=== PATIENT | female | born 1935 | race Caucasian/White ===

== ENCOUNTER 2023-12-30 11:55 | Emergency (ER) | payer OTHER, SELFPAY ==
[2023-12-30 12:07] VITALS: PULSE 103; BMI 19.3
--- NOTE | 2023-12-30 12:08 | XR_ITS ---
Examination: CT cervical spine without contrast 2-D sagittal reconstructions 2-D coronal reconstructions 3-D reconstructions. Exam date and time:December 30, 2023 1309 hrs. Indications: Ground-level fall today with injury to the neck, neck pain post injury CTDI:vol (mGy) 7.4 DLP: (mGycm) 154 Technique: Multiple 2 mm axial sections of the cervical spine have been obtained. The coronal and sagittal reconstructions have been obtained. 3-D reconstructions have been obtained. Low dose protocols were performed. One or more of the following dose reduction techniques were used; automated exposure control, adjustment of the mA and/or KV according to patient size, use of iterative reconstruction technique. Findings: Axial sections demonstrate intact base of the skull. C1 exhibit satisfactory relationship to the odontoid. No acute cervical vertebral body fracture seen. Alignment posterior spinous processes satisfactory. Impression: No acute cervical fracture.
--- NOTE | 2023-12-30 12:08 | XR_ITS ---
Examination: CT brain head without contrast. 2-D sagittal coronal reconstructions Date and time of exam:December 30, 2023 1309 hrs. Indications: Ground-level fall today with injury to the head, head injury, head pain CTDI: vol (mGy):48.8 DLP: (mGycm):1032 Technique: Multiple CT axial sections of the brain have been obtained, 5 mm slice thickness. Contrast has not been administered. 2-D sagittal, coronal reconstructions have been obtained Low dose protocols were performed. One or more of the following dose reduction techniques were used; automated exposure control, adjustment of the mA and/or KV according to patient size, use of iterative reconstruction technique. Findings: No significant ventricular enlargement. 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 No mass effect or midline shift Basal cisterns are not remarkable. Fourth ventricle is midline. Cranial vault intact. Impression: Negative for acute hemorrhage, mass effect or midline shift
--- NOTE | 2023-12-30 12:08 | XR_ITS ---
Examination: Shoulder,right, 3 views Technique: Shoulder AP internal rotation, AP external rotation, Y view shoulder, 3 views Exam date and time :December 30, 2023 1218 hrs. Indications: Injury to the shoulder today, shoulder pain. Findings: Prominent osteopenia No acute shoulder fracture or dislocation Moderate osteoarthritis glenohumeral joint Impression: No acute shoulder fracture
--- NOTE | 2023-12-30 12:08 | XR_ITS ---
Examination: Right elbow 3 views Technique: Elbow AP, oblique, lateral 3 views Exam date and time: December 30, 2023 1218 hrs. Indications: Injury to the elbow today, elbow pain. Findings: Prominent osteopenia No acute fracture No dislocation Impression: No acute fracture.
--- NOTE | 2023-12-30 12:08 | XR_ITS ---
Examination: Humerus 2 views right Technique: Humerus, AP lateral 2 views Date and time of exam: December 30 2023 1218 hrs. Findings: Injury to the arm today with arm pain Findings: No shoulder dislocation or fracture Shaft humerus intact Impression: No acute fracture
[2023-12-30 12:13] VITALS: BP 159/80; PULSE 71; RESP 16; TEMP 36.9; O2SAT 95
--- NOTE | 2023-12-30 12:16 | PD.EDFALL ---
ED Fall Injury RME/HPI General Chief Complaint: Fall Stated Complaint: FALL ON PORCH WITH LOC, RIGHT ARM PAIN Time Seen by Provider: 12/30/23 12:04 Arrival date/time: 12/30/23 11:55 Limitations: no limitations RME / HPI RME / HPI Narrative: DR. LAZO MAIN ED EVALUATION: 88 year old female presents to the Emergency Department [facility] with complaint of a ground level fall backwards injuring the back of her head and her right shoulder outside while on the porch. Patient does not recall the events around the fall. She was told that she was out for a couple of seconds , she does not recall. No other injuries or symptoms reported at this time. PMHx: Hyperlipidemia, hypertension, hypothyroidism, type 2 diabetes. Social Hx: No tobacco, alcohol, or substance use. Related Data Home Medications ?Medication ?Instructions ?Recorded ?Confirmed aspirin 81 mg tablet,delayed 81 mg PO QDAY 03/06/19 02/02/21 release (Aspir-) carvedilol 25 mg tablet 25 mg PO BID 03/06/19 02/02/21 digoxin 125 mcg (0.125 mg) tablet 125 mcg PO QDAY 03/06/19 02/02/21 glipizide 10 mg tablet 10 mg PO BID 03/06/19 02/02/21 hydrochlorothiazide 25 mg tablet 25 mg PO QDAY 03/06/19 02/02/21 levothyroxine 112 mcg tablet 112 mcg PO QDAY 03/06/19 02/02/21 metformin 1,000 mg tablet 1,000 mg PO BID 03/06/19 02/02/21 atorvastatin 10 mg tablet 10 mg PO HS 02/02/21 02/02/21 lisinopril 20 mg tablet 20 mg PO QDAY 02/02/21 02/02/21 sitagliptin phosphate 100 mg 100 mg PO QDAY 02/02/21 02/02/21 tablet (Januvia) Allergies Allergy/AdvReac Type Severity Reaction Status Date / Time Penicillins Allergy Mild Hives Verified 12/30/23 12:07 shellfish derived Allergy Verified 12/30/23 12:07 shrimp Allergy Swelling Verified 12/30/23 12:07 of Lip/Tongue/Throat Review of Systems Review of Systems Systems Reviewed: All systems reviewed, normal except as documented Narrative Review of Systems: GEN: No fever, no chills, no weight loss EYES: No discharge, no visual changes, no pain HEENT: No ear pain, no congestion, no sore throat PULM: No shortness of breath, no cough, no congestion CV: No chest pain, no dyspnea on exertion, no palpitations GI: No nausea, no vomiting, no diarrhea, no pain, no constipation : No frequency, no urgency and no dysuria MUSC/SKEL: + right shoulder pain (secondary to fall see HPI), no back pain SKIN: No rash PSYCH: No hallucinations, no depression HEME/LYMPH: No easy bleeding or bruising tendencies NEURO: No weakness, + back of head/ headache (secondary to fall see HPI), + LOC (see HPI) Past Medical History Past Medical History NEUROLOGIC: Positive Neurological Disorders, Ladd's Palsy and Head Trauma CARDIAC: Positive Cardiac Disorders and Hypertension RESPIRATORY: Positive Sleep Apnea GASTROINTESTINAL: Positive Hemorrhoids GENITOURINARY: Positive Genitourinary Disorders and Kidney Stones REPRODUCTIVE: Positive Breast Cancer and Previous Pregnancies MUSCULOSKELETAL: Positive Musculoskeletal Disorders, Arthritis and Poliovirus ENT: Positive Cataracts and Head Trauma ENDOCRINE: Positive Endocrine Disorders, Diabetes Mellitus Type 2 and Hypothyroidism OTHER HISTORY: Positive Shingles, Blood Transfusions, Anesthesia Reactions, Radiation Therapy, Chicken Pox, Measles, Mumps, Cancer and Breast Cancer Family History FAMILY HISTORY: Positive Family Psychiatric Problems, Family Respiratory Disorders, Family Cardiac Disorders, Family Gastrointestinal Problems, Family Cancer and Family Surgery; Negative Family Anesthesia Reaction Surgical History SURGICAL: Positive Cardiac Surgery, Pacemaker, Angiogram, Mastectomy, Lumpectomy and Hysterectomy Social History SMOKING STATUS: Never smoker SUBSTANCE USE: does not use ALCOHOL: Never ED Exam General Limitations: Present no limitations General appearance: Present alert and in no apparent distress Head Head exam: Present atraumatic Eye Eye exam: Present normal appearance, PERRL and EOMI ENT ENT exam: Present normal exam, normal oropharynx and mucous membranes moist Neck Neck exam: Present normal inspection, full ROM and trachea midline Chest Chest inspection: Present normal inspection and symmetric chest wall rise Respiratory Respiratory exam: Present normal lung sounds bilaterally Cardiovascular Cardiovascular exam: Present regular rate, normal rhythm and normal heart sounds Abdominal Exam Abdominal exam: Present soft and normal bowel sounds Extremities Exam Extremities exam: Present normal inspection and full ROM Expanded Upper Extremity Exam Shoulder exam: Present tenderness (Tenderness to palpation throughout her right shoulder and limited range of motion due to pain.) and other (Small 3 cm contusion without laceration, bruising without deformity over her right shoulder.) Elbow exam: Present other (8 cm skin tear over her lateral right elbow without deformity or ecchymosis of the elbow joint.) Back Exam Back exam: Present normal inspection and full ROM Neurological Exam Neurological exam: Present alert, oriented X3 and CN II-XII intact Psychiatric Psychiatric exam: Present normal affect and normal mood Skin Skin exam: Present warm, dry and normal color Course Quality Measures none Orders Category Date Time Status CT cervical spine wo con Stat Exams 12/30/23 12:[address] head/brain wo con Stat Exams 12/30/23 12:08 Completed XR elbow comp RT min 3V Stat Exams 12/30/23 12:08 Completed XR humerus RT min 2V Stat Exams 12/30/23 12:08 Completed XR shoulder RT min 2V Stat Exams 12/30/23 12:08 Completed Acetaminophen Tab [Tylenol Tab] Med 12/30/23 12:08 Discontinued 650 mg PO X1 ONE Tet,Diphth,Pertuss(Acell)-Tdap [Boostrix Vacc] Med 12/30/23 12:08 Discontinued 0.5 ml IMI .ONCE ONE Vital Signs Vital signs: Vital Signs Temperature 98.5 F 12/30/23 12:13 Pulse Rate 71 12/30/23 12:13 Respiratory Rate 16 12/30/23 12:13 Blood Pressure 159/80 H 12/30/23 12:13 Pulse Oximetry (%) 95 12/30/23 12:13 Oxygen Delivery Method Room Air 12/30/23 12:13 Fall MDM Narrative MDM Narrative:: I, Ila Morin am scribing for and in the presence of Dr. Lazo. Patient data External records reviewed:: [facility] previous records (Reviewed last ED visit dated 09/03/23, discharged with the following: Leg edema, right.) and EMS form Clinical information provided by:: patient and EMS Social determinants that could affect healthcare access:: none Patient has the following chronic illnesses:: Hyperlipidemia, hypertension, hypothyroidism, type 2 diabetes. How is presenting disease/condition affected by chronic disease/condition?: uneffected by Evaluation data The following diagnostics were reviewed and interpreted by me:: radiology exam(s) Lab and/or radiology exams considered but not ordered:: none Interpretation Summary: Procedure(s): XR shoulder RT min 2V Accession Number(s): [id number] cc: Tarun Lazo MD; Richard Biswas MD; Jocelyne Lubin MD~ Examination: Shoulder,right, 3 views Technique: Shoulder AP internal rotation, AP external rotation, Y view shoulder, 3 views Exam date and time :December 30, 2023 1218 hrs. Indications: Injury to the shoulder today, shoulder pain. Findings: Prominent osteopenia No acute shoulder fracture or dislocation Moderate osteoarthritis glenohumeral joint Impression: No acute shoulder fracture Dictated By: Richard Biswas MD Procedure(s): XR humerus RT min 2V Accession Number(s): [id number] cc: Tarun Lazo MD; Richard Biswas MD; Jocelyne Lubin MD~ Examination: Humerus 2 views right Technique: Humerus, AP lateral 2 views Date and time of exam: December 30 2023 1218 hrs. Findings: Injury to the arm today with arm pain Findings: No shoulder dislocation or fracture Shaft humerus intact Impression: No acute fracture Dictated By: Richard Biswas MD Procedure(s): CT head/brain wo con Accession Number(s): [id number] cc: Tarun Lazo MD; Richard Biswas MD; Jocelyne Lubin MD~ Examination: CT brain head without contrast. 2-D sagittal coronal reconstructions Date and time of exam:December 30, 2023 1309 hrs. Indications: Ground-level fall today with injury to the head, head injury, head pain CTDI: vol (mGy):48.8 DLP: (mGycm):1032 Technique: Multiple CT axial sections of the brain have been obtained, 5 mm slice thickness. Contrast has not been administered. 2-D sagittal, coronal reconstructions have been obtained Low dose protocols were performed. One or more of the following dose reduction techniques were used; automated exposure control, adjustment of the mA and/or KV according to patient size, use of iterative reconstruction technique. Findings: No significant ventricular enlargement. 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 No mass effect or midline shift Basal cisterns are not remarkable. Fourth ventricle is midline. Cranial vault intact. Impression: Negative for acute hemorrhage, mass effect or midline shift Dictated By: Richard Biswas MD Procedure(s): XR elbow comp RT min 3V Accession Number(s): [id number] cc: Tarun Lazo MD; Richard Biswas MD; Jocelyne Lubin MD~ Examination: Right elbow 3 views Technique: Elbow AP, oblique, lateral 3 views Exam date and time: December 30, 2023 1218 hrs. Indications: Injury to the elbow today, elbow pain. Findings: Prominent osteopenia No acute fracture No dislocation Impression: No acute fracture. Dictated By: Richard Biswas MD Procedure(s): CT cervical spine wo con Accession Number(s): [id number] cc: Tarun Lazo MD; Richard Biswas MD; Jocelyne Lubin MD~ Examination: CT cervical spine without contrast 2-D sagittal reconstructions 2-D coronal reconstructions 3-D reconstructions. Exam date and time:December 30, 2023 1309 hrs. Indications: Ground-level fall today with injury to the neck, neck pain post injury CTDI:vol (mGy) 7.4 DLP: (mGycm) 154 Technique: Multiple 2 mm axial sections of the cervical spine have been obtained. The coronal and sagittal reconstructions have been obtained. 3-D reconstructions have been obtained. Low dose protocols were performed. One or more of the following dose reduction techniques were used; automated exposure control, adjustment of the mA and/or KV according to patient size, use of iterative reconstruction technique. Findings: Axial sections demonstrate intact base of the skull. C1 exhibit satisfactory relationship to the odontoid. No acute cervical vertebral body fracture seen. Alignment posterior spinous processes satisfactory. Impression: No acute cervical fracture. Dictated By: Richard Biswas MD Medications / Prescriptions Medications or Prescriptions considered but not ordered:: none Medication administrations:: Medication Administration History Discontinued Medications Acetaminophen (Acetaminophen 325 Mg Tablet) 650 mg PO X1 ONE Stop: 12/30/23 12:09 Last Admin: 12/30/23 14:21 Dose: 650 mg Documented By: RD Diphtheria/Tetanus/Acell Pertussis (Diphth,Pertuss(Acell),Tet Vac 0.5 Ml Vial) 0.5 ml IMi .ONCE ONE Stop: 12/30/23 12:09 Last Admin: 12/30/23 14:23 Dose: 0.5 ml Documented By: JOSEPH see above Consultations Consultation(s) initiated? (list below): No Diagnosis Fall Differential Diagnosis: dislocation of shoulder region, concussion with loss of consciousness and other (elbow dislocation, elbow fracture, shoulder dislocation, shoulder fracture) Most likely diagnosis given after review of the tests above:: shoulder contusion, inclosed hip injury, skin tear Admission Indicated Admission indicated?: not indicated Admission Request Was there a request for admission?: No Disposition Plan Disposition Plan: Discharge Discharge Attestation Discharge Attestation: The patient and all family members were given an opportunity to ask questions and understood the discharge instructions. Discharge instructions specifically effects, indications for sooner follow up or return to the emergency department, and the expected course of current diagnosis. Patient condition: Stable Discharge Plan Plan Patient Disposition: HOME (Self Care) Patient condition on transfer: Stable Prescriptions/Referrals Prescriptions/Med Rec: No Action carvedilol 25 mg Tablet 25 mg PO BID glipizide 10 mg Tablet 10 mg PO BID aspirin [Aspir-81] 81 mg Tablet,Delayed Release (Dr/Ec) 81 mg PO QDAY metformin 1,000 mg Tablet 1,000 mg PO BID Patient Comments: PT TAKES 1/2 TABLET FOUR TIMES A DAY hydrochlorothiazide 25 mg Tablet 25 mg PO QDAY digoxin 125 mcg (0.125 mg) Tablet 125 mcg PO QDAY levothyroxine 112 mcg Tablet 112 mcg PO QDAY lisinopril 20 mg tablet 20 mg PO QDAY Januvia 100 mg tablet 100 mg PO QDAY atorvastatin 10 mg Tablet 10 mg PO HS Referrals: Jocelyne Puckett MD [Primary Care Provider] - In 1 week Problem List Clinical Impression: Skin tear, Contusion of right shoulder, Closed head injury Patient/Caregiver Discharge Instructions Education Materials: ED Contusion, Upper Extremity, ED Head Injury (Adult), ED Skin Avulsion Additional Instructions: Follow-up your primary doctor in 2-3 days for recheck. You can return to the emergency department sooner if symptoms worsen or for any issues. Print Language: Vincentian Stand Alone Forms: Tiffany Award Info., Patient Portal Info Letter
--- NOTE | 2023-12-30 12:53 | PC.NURSE ---
BIBA FROM HOME FOR FALL ON PORCH WITH LOC with RIGHT ARM SHOULDER PAIN, RIGHT ELBOW SKIN TEAR AND HEADACHE. DENIES TAKING BLOOD THINNERS OTHER THAN 81MG ASPIRIN. HX HTN, PACEMAKER AND DIABETES. PATIENT IS ALERT AND ANSWERS ALL QUESTIONS APPROPRIATELY.
[2023-12-30] MEDS: ACETAMINOPHEN 325 MG TABLET 650 MG PO (14:21)
[2023-12-30] MEDS: DIPHTH,PERTUSS(ACELL),TET VAC 0.5 ML VIAL IMi (14:23)
[2023-12-30 14:52] VITALS: BP 179/93; PULSE 60; RESP 18; TEMP 36.9; O2SAT 96
== END 2023-12-30 15:32 | disposition home or self-care (01) ==
PROVIDERS: Emergency Provider Emergency Medicine; PCP Family Medicine
DX: S40.011A Contusion of right shoulder, initial encounter (principal); S09.90XA Unspecified injury of head, initial encounter; S51.011A Laceration without foreign body of right elbow, initial encounter; S19.9XXA Unspecified injury of neck, initial encounter; W18.30XA Fall on same level, unspecified, initial encounter; Z23 Encounter for immunization
CPT/HCPCS: 70450; 72125; 73030; 73060; 73080; 90471; 90715; 99284; A9270

== ENCOUNTER → 2024-01-25 | Outpatient (CLI) | payer OTHER, SELFPAY ==
[2024-01-25 11:48] LABS: Glucose Estimated Average 186 mg/dL (80-131); Hemoglobin A1C 8.1 % Hgb (4.8-6.0)
[2024-01-25 11:57] LABS: Anion Gap 5 (7-16); BUN/Creatinine Ratio 23 Ratio (12-20); Blood Urea Nitrogen 27 mg/dL (9-23); Calcium 9.8 mg/dL (8.3-10.6); Carbon Dioxide 30.8 mMol/L (20.0-31.0); Chloride 102 mMol/L (98-107); Creatinine (Component) 1.2 mg/dL (0.6-1.3); Glucose 197 mg/dL (74-106); Osmolality,Calculated 285 (275-295); Potassium 4.8 mMol/L (3.4-5.1); Sodium 138 mMol/L (136-145); eGFR 44 See Note
== END | disposition home or self-care (01) ==
PROVIDERS: PCP Family Medicine; Referring Provider Family Medicine; Visit Provider Family Medicine
DX: E11.65 Type 2 diabetes mellitus with hyperglycemia (principal)
CPT/HCPCS: 36415; 80048; 83036

== ENCOUNTER → 2024-06-10 | Outpatient (CLI) | payer OTHER, SELFPAY ==
[2024-06-10 11:46] LABS: Cholesterol 195 mg/dL (132-200); Glucose Estimated Average 183 mg/dL (80-131); HDL Cholesterol 49 mg/dL (40-60); LDL Cholesterol,Calculated 116 mg/dL (0-130); Thyroid Stimulating Hormone 12.83 uIU/mL (0.55-4.78); Triglycerides 149 mg/dL (30-150)
[2024-06-10 12:23] LABS: Basophils # (Auto) 0.2 Thou/mm3 (0.0-0.2); Basophils % (Auto) 3 % (0-2.5); Eosinophils # (Auto) 1.3 Thou/mm3 (0.0-0.5); Eosinophils % (Auto) 16 % (0-10); Hematocrit 38.3 % (36.0-46.0); Hemoglobin 12.3 g/dL (12.0-16.0); Immature Granulocytes % (Auto) 0 % (0-0); Immature Granulocytes Auto 0.01 Thou/mm3 (0.00-0.00); Lymphocytes # (Auto) 2.2 Thou/mm3 (1.0-4.8); Lymphocytes % (Auto) 28 % (10-50); Mean Corpuscular HGB Conc 32.1 g/dl (31.0-37.0); Mean Corpuscular Hemoglobin 31.1 pg (25.0-35.0); Mean Corpuscular Volume 97 fL (80-100); Monocytes # (Auto) 0.5 Thou/mm3 (0.0-0.8); Monocytes % (Auto) 6 % (0-12); Neutrophils # (Auto) 3.8 Thou/mm3 (1.8-7.7); Neutrophils % (Auto) 48 % (37-80); Nucleated Red Blood Cell % 0 /100 WBC (0); Platelet Count 338 Thou/mm3 (140-440); RDW Standard Deviation 48.8 fL (36.4-46.3); Red Blood Count 3.95 Miln/mm3 (4.00-5.20); White Blood Count 7.9 Thou/mm3 (3.6-11.0)
[2024-06-10 12:23] LABS: Creatinine MALB Rnd Ur 57 mg/dL (30-125); Microalbumin Creat Ratio 423 mg/gCrea (<30); Microalbumin, Random Urine 241 mg/L (0-300)
== END | disposition home or self-care (01) ==
LOC: COPL 10:49
PROVIDERS: PCP Family Medicine; Referring Provider Family Medicine; Visit Provider Family Medicine
DX: E11.65 Type 2 diabetes mellitus with hyperglycemia (principal)
CPT/HCPCS: 36415; 80061; 82043; 82570; 83036; 84443; 85025

== ENCOUNTER → 2024-09-06 | Outpatient (CLI) | payer OTHER, SELFPAY ==
[2024-09-06 10:27] LABS: Anion Gap 9 (7-16); BUN/Creatinine Ratio 26 Ratio (12-20); Blood Urea Nitrogen 34 mg/dL (9-23); Calcium 9.0 mg/dL (8.3-10.6); Carbon Dioxide 24.7 mMol/L (20.0-31.0); Chloride 105 mMol/L (98-107); Creatinine (Component) 1.3 mg/dL (0.6-1.3); Free T4 (Free Thyroxine) 1.49 ng/dL (0.89-1.76); Glucose 194 mg/dL (74-106); Osmolality,Calculated 290 (275-295); Potassium 4.6 mMol/L (3.4-5.1); Sodium 139 mMol/L (136-145); Thyroid Stimulating Hormone 0.92 uIU/mL (0.55-4.78); eGFR 40 See Note
[2024-09-06 10:33] LABS: Glucose Estimated Average 177 mg/dL (80-131); Hemoglobin A1C 7.8 % Hgb (4.8-6.0)
== END | disposition home or self-care (01) ==
LOC: COPL 09:14
PROVIDERS: PCP Family Medicine; Referring Provider Family Medicine; Visit Provider Family Medicine
DX: E11.65 Type 2 diabetes mellitus with hyperglycemia (principal); E03.9 Hypothyroidism, unspecified
CPT/HCPCS: 36415; 80048; 83036; 84439; 84443

== ENCOUNTER 2024-09-19 05:06 | Emergency (ER) | payer OTHER, SELFPAY ==
[2024-09-19 05:07] VITALS: BP 181/102; PULSE 92; RESP 18; TEMP 37; O2SAT 98
[2024-09-19 05:19] VITALS: PULSE 70; RESP 18; O2SAT 98; BMI 18.3
[2024-09-19 05:27] VITALS: BP 178/73; PULSE 71; RESP 18; O2SAT 100
--- NOTE | 2024-09-19 06:08 | XR_ITS ---
Examination: Ribs, right, unilateral 3 views TECHNIQUE: AP RPO LPO right ribs 3 views Exam date and time: September 19, 2024 0713 hours INDICATIONS: Ground-level fall today with injury to the right chest, right rib pain Findings: No pneumothorax. Severe osteopenia. Old lower right rib fractures No pneumothorax. No acute rib fractures IMPRESSION: No pneumothorax. No acute rib fractures
--- NOTE | 2024-09-19 06:13 | EDNOTE_ITS ---
<Statement entered by Yareli Dickey MD - 09/19/24 15:00> I, Yareli Dickey MD, have reviewed the history, exam, and assessment of the patient. I have evaluated the patient independently and agree with the plan of care documented by [ ]. All diagnostic studies were reviewed and discussed. I confirm the diagnosis as documented by the Resident. I was present during the Medical Decision Making for this patient. The patient's plan of care was created between myself and the Resident and consistent with our discussion of the patient's case. ED General RME/HPI General Chief complaint: Fall Stated complaint: FALL Time Seen by Provider: 09/19/24 05:50 Arrival date/time: 09/19/24 05:06 RME / HPI RME / HPI narrative: 89-year-old female with past medical history of hypothyroidism, pacemaker, diabetes, and hypertension comes into the ER after ground-level fall. Patient stated that she was trying to go to the bathroom this morning and when she stood up from her bed her legs just gave out. She stated that she did not have any dizziness, palpitation, chest pain, shortness of breath, or any loss of consciousness at this time. She states that this has happened last year where s he had another fall where her legs just gave out. She does take aspirin and has been taking NSAIDs for her chronic hip pain. Patient did mention that she hit her right rib cage and was complaining also some right shoulder pain. Denies hitting her head. Denies having any abdominal pain, dysuria, changes in bowel movements, or any nausea or vomiting. Otherwise no other complaints at this time. Related Data Home Medications ?Medication ?Instructions ?Recorded ?Confirmed aspirin 81 mg tablet,delayed 81 mg PO QDAY 03/06/19 release (Aspir-) carvedilol 25 mg tablet 25 mg PO BID 03/06/19 digoxin 125 mcg (0.125 mg) tablet 125 mcg PO QDAY 02/1402/02/21 glipizide 10 mg tablet 10 mg PO BID 03/06/19 hydrochlorothiazide 25 mg tablet 25 mg PO QDAY 0 02/02/21 levothyroxine 112 mcg tablet 112 mcg PO QDAY 03/06/19 02/02/21 metformin 1,000 mg tablet 1,000 mg PO BID 03/06/19 atorvastatin 10 mg tablet 10 mg PO HS 02/02/21 1 lisinopril 20 mg tablet 20 mg PO QDAY 02/02/2102/02 sitagliptin phosphate 100 mg 100 mg PO QDAY 02/02/21 1 04/05/20 tablet (Januvia) Allergies Allergy/AdvReac Type Severity Reaction Status Date / Time Penicillins Allergy Mild Hives Verified 09/19/24 05:19 shellfish derived Allergy Verified 09/19/24 05:19 shrimp Allergy Swelling Verified 09/19/24 05:19 of Lip/Tongue/Throat Review of Systems Review of Systems Systems Reviewed: All systems reviewed, normal except as documented Past Medical History Past Medical History NEUROLOGIC: Positive Neurological Disorders, Ladd's Palsy and Head Trauma CARDIAC: Positive Cardiac Disorders and Hypertension RESPIRATORY: Positive Sleep Apnea GASTROINTESTINAL: Positive Hemorrhoids GENITOURINARY: Positive Genitourinary Disorders and Kidney Stones REPRODUCTIVE: Positive Breast Cancer and Previous Pregnancies MUSCULOSKELETAL: Positive Musculoskeletal Disorders, Arthritis and Poliovirus ENT: Positive Cataracts and Head Trauma ENDOCRINE: Positive Endocrine Disorders, Diabetes Mellitus Type 2 and Hypothyroidism OTHER HISTORY: Positive Shingles, Blood Transfusions, Anesthesia Reactions, Radiation Therapy, Chicken Pox, Measles, Mumps, Cancer and Breast Cancer Family History FAMILY HISTORY: Positive Family Psychiatric Problems, Family Respiratory Disorders, Family Cardiac Disorders, Family Gastrointestinal Problems, Family Cancer and Family Surgery; Negative Family Anesthesia Reaction Surgical History SURGICAL: Positive Cardiac Surgery, Pacemaker, Angiogram, Mastectomy, Lumpectomy and Hysterectomy Social History SMOKING STATUS: Never smoker SUBSTANCE USE: does not use ALCOHOL: Never ED Exam Narrative Physical exam: Gen: A&O X 3, weak appearing, thin frail, temporal wasting HEENT: NCAT, EOMI, Pupils reactive YAEL, not icteric. External ears normal. No rhinorrhea. Dry mucous membranes. Neck: Supple, full range of motion, no observable masses, No meningeal sign. Lungs: No Respiratory distress, clear bilateral, mild tenderness to right lower rib cage, no bruising. CV: RRR, no murmurs. Abdomen: Soft, distended in the lower abdomen from a hernia, is not tender and it is reducible, nontender to palpation no rebound tenderness. MSK: No joint swelling, no redness, peripheral pulses presents, lumbar with no edema. Small bruise on the lateral left mid thigh, seems to be old. Skin: No rashes, petechiae, lesions. Small skin tear on the lateral aspect of the right elbow measuring around 1 to 2 cm., No active bleeding. Some small bruises in forearms and lower extremity. Neuro: No focal neurological deficits appreciated, sensory and motor intact. Psych: Cooperative, appropriate mood and effect. 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 Q4H START 00 Care 09/19/24 06:10 Active Continuous Pulse Oximetry NOW Care 09/19/24 06:10 Active EKG (ED ONLY) *Do not use* NOW Care 09/19/24 06:09 Completed EKG (ED Only) Stat Exams 09/19/24 06:09 Ordered XR ribs RT 2V Stat Exams 09/19/24 06:08 Completed XR shoulder RT 1V Stat Exams 09/19/24 06:29 Completed CBC [CBC] Stat Lab 09/19/24 06:20 Completed CMP [Comprehensive Metabolic Panel] Stat Lab 09/19/24 06:20 Completed Drug Screen,Urine Stat Lab 09/19/24 06:19 Completed Lactic Acid [Lactate (Lactic Acid)] Stat Lab 09/19/24 06:20 Completed Procalcitonin Stat Lab 09/19/24 06:20 Completed TSH [Thyroid Stimulating Hormone] Stat Lab 09/19/24 06:20 Completed UA [Urinalysis] Stat Lab 09/19/24 06:19 Completed hydrALAZINE INJ [Apresoline Inj] Med 09/19/24 08:29 Discontinued 10 mg IVP X1 ONE Vital Signs Vital signs: Vital Signs Temperature 98.6 F 09/19/24 05:07 Pulse Rate 92 09/19/24 05:07 Respiratory Rate 18 09/19/24 05:07 Blood Pressure 181/102 H 09/19/24 05:07 Pulse Oximetry (%) 98 09/19/24 05:07 Oxygen Delivery Method Room Air 09/19/24 05:07 Discharge Plan Plan Patient Disposition: HOME (Self Care) Prescriptions/Referrals Prescriptions/Med Rec: No Action carvedilol 25 mg Tablet 25 mg PO BID glipizide 10 mg Tablet 10 mg PO BID aspirin [Aspir-81] 81 mg Tablet,Delayed Release (Dr/Ec) 81 mg PO QDAY metformin 1,000 mg Tablet 1,000 mg PO BID Patient Comments: PT TAKES 1/2 TABLET FOUR TIMES A DAY hydrochlorothiazide 25 mg Tablet 25 mg PO QDAY digoxin 125 mcg (0.125 mg) Tablet 125 mcg PO QDAY levothyroxine 112 mcg Tablet 112 mcg PO QDAY lisinopril 20 mg tablet 20 mg PO QDAY Januvia 100 mg tablet 100 mg PO QDAY atorvastatin 10 mg Tablet 10 mg PO HS Referrals: Jocelyne Puckett MD [Primary Care Provider] - In 1 week Problem List Clinical Impression: Contusion, Fall Patient/Caregiver Discharge Instructions Other Activity Instructions:: Follow-up primary care physician within 5 days. You can take Tylenol every 6 hours for the next 3 days for pain as needed. Come back to the ED if pain worsens, develop dizziness, nausea, vomiting, fever chills,, have another fall, or worsening symptoms. Education Materials: Fall Prevention Assessing Risk, Exercises to Prevent Falls, Contusion Bone Tx Print Language: Surinamese Stand Alone Forms: Tiffany Award Info., Patient Portal Info Letter MDM Narrative MDM hospital course: Patient was seen and evaluated by myself upon arrival. Ordered diagnostic tests and imaging 8: 30: Patient blood pressure was still elevated therefore gave hydralazine 10 mg IV x 1 9: 30: X-ray of right rib cage and right shoulder did not show any acute fractures. Patient's pain was minimal at this time. Otherwise labs were unremarkable. Patient was stable enough to be discharged home with follow-up instructions to follow-up with primary care physician for frequent falls. Case disclosed with Attending Dr. Noble Montez PGY2 Disclaimer: Even though this this note was dictated by speech recognition and even though it was carefully revised there may still be minor errors in river guide due to voice recognition software. Medication Administration(s) Medication Administration History Discontinued Medications Hydralazine HCl (Hydralazine Inj 20 Mg/Ml Vial) 10 mg IVP X1 ONE Stop: 09/19/24 08:30 Last Admin: 09/19/24 08:37 Dose: 10 mg Documented By: JOSEPH
[2024-09-19 06:23] LABS: Collection Type, Urine Catheter
[2024-09-19 06:25] LABS: Lactate (Lactic Acid) 1.0 mMol/L (0.4-2.0)
--- NOTE | 2024-09-19 06:29 | XR_ITS ---
Examination: AP right shoulder single view TECHNIQUE: AP portable right shoulder single view Date and time: September 19, 2024 0721 hours INDICATIONS: Patient fell today with into the shoulder, shoulder pain. FINDINGS: Limited study, single view No shoulder fracture or dislocation. No AC joint separation IMPRESSION: No shoulder fracture
[2024-09-19 06:31] LABS: Basophils # (Auto) 0.1 Thou/mm3 (0.0-0.2); Basophils % (Auto) 1 % (0-2.5); Eosinophils # (Auto) 1.0 Thou/mm3 (0.0-0.5); Eosinophils % (Auto) 11 % (0-10); Hematocrit 32.6 % (36.0-46.0); Hemoglobin 10.6 g/dL (12.0-16.0); Immature Granulocytes Auto 0.03 Thou/mm3 (0.00-0.00); Lymphocytes # (Auto) 2.2 Thou/mm3 (1.0-4.8); Lymphocytes % (Auto) 26 % (10-50); Mean Corpuscular HGB Conc 32.5 g/dl (31.0-37.0); Mean Corpuscular Hemoglobin 30.8 pg (25.0-35.0); Mean Corpuscular Volume 95 fL (80-100); Monocytes # (Auto) 0.8 Thou/mm3 (0.0-0.8); Monocytes % (Auto) 10 % (0-12); Neutrophils # (Auto) 4.3 Thou/mm3 (1.8-7.7); Neutrophils % (Auto) 51 % (37-80); Nucleated Red Blood Cell # 0.00 Thou/mm3 (0.00-0.00); Nucleated Red Blood Cell % 0 /100 WBC (0); Platelet Count 341 Thou/mm3 (140-440); RDW Standard Deviation 51.7 fL (36.4-46.3); Red Blood Count 3.44 Miln/mm3 (4.00-5.20); White Blood Count 8.3 Thou/mm3 (3.6-11.0)
[2024-09-19 06:56] LABS: Alanine Aminotransferase 9 U/L (10-49); Albumin, Serum 4.2 gm/dL (3.4-4.8); Albumin/Globulin Ratio 1.8 (1.2-2.2); Alkaline Phosphatase 55 U/L (46-116); Anion Gap 9 (7-16); Aspartate Amino Transferase < 10 U/L (0-34); BUN/Creatinine Ratio 23 Ratio (12-20); Bilirubin,Total < 0.2 mg/dL (0.3-1.2); Blood Urea Nitrogen 23 mg/dL (9-23); Calcium 9.2 mg/dL (8.3-10.6); Calcium (Corrected) 9.2 mg/dL (8.5-10.1); Carbon Dioxide 24.9 mMol/L (20.0-31.0); Chloride 109 mMol/L (98-107); Creatinine (Component) 1.0 mg/dL (0.6-1.3); Estimated Creatinine Clearance 30.6 mL/min (>60); Globulin 2.3 gm/dL (2.3-3.5); Glucose 115 mg/dL (74-106); Osmolality,Calculated 289 (275-295); Potassium 3.7 mMol/L (3.4-5.1); Procalcitonin 0.07 ng/ml (0.0-0.49); Sodium 143 mMol/L (136-145); Thyroid Stimulating Hormone 0.63 uIU/mL (0.55-4.78); Total Protein 6.5 gm/dL (5.7-8.2); eGFR 54 See Note
[2024-09-19 07:08] LABS: Amphetamine/Methamp Scrn,U Negative (Negative); Barbiturate Screen,Urine Negative (Negative); Benzodiazepines Screen,Urine Negative (Negative); Benzoylecgonine Screen, Ur Negative (Negative); Fentanyl Screen,Urine Negative (Negative); Opiate Screen,Urine Negative (Negative); THC Screen,Urine Negative (Negative)
--- NOTE | 2024-09-19 07:35 | PC.NURSE ---
PT GCS 15, reports she has pain all over, mostly in her R ribcage and R hip at this time, gives it a 5/10 on the pain scale. Pt updated on POC and in agreement
[2024-09-19 08:03] VITALS: BP 192/73; PULSE 61; RESP 16; TEMP 36.7; O2SAT 95
--- NOTE | 2024-09-19 08:24 | PC.NURSE ---
For P/U if pt is D/C call Miranda Long at [phone]
[2024-09-19 08:37] VITALS: BP 188/94; PULSE 67
[2024-09-19] MEDS: hydrALAZINE INJ 20 MG/ML VIAL 10 MG IVP (08:37)
[2024-09-19 08:54] LABS: Clarity,Urine Clear (Clear/Hazy); Color,Urine Yellow (Lt Yel-Yel); Glucose, Urine 3+ (Negative)
[2024-09-19 08:55] LABS: Bilirubin,Urine Negative (Negative); Blood,Urine T (Negative); Ketones,Urine Negative (Negative); Leukocyte Esterase,Urine Negative (Negative); Nitrite,Urine Positive (Negative); PH,Urine 6.0 (5.0-7.0); Protein,Urine 1+ (Neg - Trace); RBC,Urine 5 /hpf (0-3); Specific Gravity,Urine 1.015 (1.001-1.035); Urobilinogen,Urine 0.2 mg/dL (0.0-1.0); WBC,Urine 5 /hpf (0-5)
[2024-09-19 08:56] LABS: Bacteria,Urine 2+; Squamous Epithelial Cell,Urine 25 /hpf (0-5)
--- NOTE | 2024-09-19 09:34 | PC.NURSE ---
SPOKE W/DEEPTI AT THIS TIME, SHE IS ON HER WAY TO COME GET PT.
== END 2024-09-19 10:15 | disposition home or self-care (01) ==
PROVIDERS: Emergency Provider Emergency Medicine; PCP Family Medicine
DX: S70.12XA Contusion of left thigh, initial encounter (principal); S50.10XA Contusion of unspecified forearm, initial encounter; S29.9XXA Unspecified injury of thorax, initial encounter; W18.30XA Fall on same level, unspecified, initial encounter
CPT/HCPCS: 36415; 71100; 73020; 80053; 80307; 81001; 83605; 84145; 84443; 85025; 93005; 96374; 99284; J0360

== ENCOUNTER → 2024-11-18 | Outpatient (CLI) | payer OTHER, SELFPAY ==
[2024-11-18 09:48] LABS: Anion Gap 10 (7-16); BUN/Creatinine Ratio 26 Ratio (12-20); Blood Urea Nitrogen 29 mg/dL (9-23); Calcium 9.7 mg/dL (8.3-10.6); Carbon Dioxide 26.5 mMol/L (20.0-31.0); Chloride 104 mMol/L (98-107); Creatinine (Component) 1.1 mg/dL (0.6-1.3); Glucose 151 mg/dL (74-106); Osmolality,Calculated 288 (275-295); Potassium 4.6 mMol/L (3.4-5.1); Sodium 140 mMol/L (136-145); eGFR 48 See Note
[2024-11-18 10:16] LABS: Glucose Estimated Average 194 mg/dL (80-131); Hemoglobin A1C 8.4 % Hgb (4.8-6.0)
== END | disposition home or self-care (01) ==
PROVIDERS: PCP Family Medicine; Referring Provider Family Medicine; Visit Provider Family Medicine
DX: E11.21 Type 2 diabetes mellitus with diabetic nephropathy (principal); E11.65 Type 2 diabetes mellitus with hyperglycemia
CPT/HCPCS: 36415; 80048; 83036

== ENCOUNTER 2025-01-01 08:50 | Day surgery (SDC) | payer OTHER, SELFPAY ==
[2024-12-30 15:04] VITALS: BMI 16.5
--- NOTE | 2024-12-31 07:00 | EKG_ITS ---
[facility] Test Date: 2025-01-01 Pat Name: PERI UW Department: Room: - Gender: Female Track Inspector: TAINA : 1935 Requested By: Adam Santos Order Number: [id number] Reading MD: Adam Snatos Measurements Intervals [place] Rate: 86 P: 70 MO: 132 QRS: 198 QRSD: 144 T: 47 QT: 397 QTc: 476 Interpretive Statements ELECTRONIC VENTRICULAR PACEMAKER ABNORMAL RHYTHM ECG Compared to ECG 09/03/2023 10:16:54 No significant changes /store/S0/[id number].pdf
[2025-01-01] VITALS (7 sets, daily range): BP systolic 104–148; BP diastolic 51–79; PULSE 65–74; RESP 12–20; TEMP 36.4–37.1; O2SAT 94–99; BMI 15.1
[2025-01-01 09:39] LABS: Basophils # (Auto) 0.1 Thou/mm3 (0.0-0.2); Basophils % (Auto) 2 % (0-2.5); Eosinophils # (Auto) 0.8 Thou/mm3 (0.0-0.5); Eosinophils % (Auto) 12 % (0-10); Hematocrit 40.4 % (36.0-46.0); Hemoglobin 12.5 g/dL (12.0-16.0); Immature Granulocytes Auto 0.01 Thou/mm3 (0.00-0.00); Lymphocytes # (Auto) 2.0 Thou/mm3 (1.0-4.8); Lymphocytes % (Auto) 33 % (10-50); Mean Corpuscular HGB Conc 30.9 g/dl (31.0-37.0); Mean Corpuscular Hemoglobin 28.2 pg (25.0-35.0); Mean Corpuscular Volume 91 fL (80-100); Monocytes # (Auto) 0.4 Thou/mm3 (0.0-0.8); Monocytes % (Auto) 6 % (0-12); Neutrophils # (Auto) 2.9 Thou/mm3 (1.8-7.7); Neutrophils % (Auto) 47 % (37-80); Nucleated Red Blood Cell # 0.00 Thou/mm3 (0.00-0.00); Nucleated Red Blood Cell % 0 /100 WBC (0); Platelet Count 275 Thou/mm3 (140-440); RDW Standard Deviation 53.7 fL (36.4-46.3); Red Blood Count 4.44 Miln/mm3 (4.00-5.20); White Blood Count 6.1 Thou/mm3 (3.6-11.0)
[2025-01-01 09:46] LABS: INR 1.0 (0.9-1.3); Partial Thromboplastin Time 27.1 Seconds (22.0-36.0); Prothrombin Time 11.0 Seconds (9.0-12.2)
[2025-01-01 09:47] LABS: Anion Gap 9 (7-16); BUN/Creatinine Ratio 26 Ratio (12-20); Blood Urea Nitrogen 23 mg/dL (9-23); Calcium 9.6 mg/dL (8.3-10.6); Carbon Dioxide 29.7 mMol/L (20.0-31.0); Chloride 101 mMol/L (98-107); Creatinine (Component) 0.9 mg/dL (0.6-1.3); Estimated Creatinine Clearance 31.6 mL/min (>60); Glucose 158 mg/dL (74-106); Osmolality,Calculated 286 (275-295); Potassium 4.8 mMol/L (3.4-5.1); Sodium 140 mMol/L (136-145); eGFR > 60 See Note
--- NOTE | 2025-01-01 10:52 | CHAP ---
Patient was dozing, but family member was with her and was glad I came and asked me to pray over her. I did. She woke up during the prayer and thanked me.
--- NOTE | 2025-01-01 13:47 | ESOP_ITS ---
RE: PERI WU : 1935 DATE OF OPERATION: 01/01/2025 PROCEDURES PERFORMED: 1. Removal and replacement of the multi-lead PUMP INSTALLER pacemaker generator. CPT code 02320. 2. Conscious sedation, 30-minute duration. DIAGNOSES: Status post multi-lead PUMP INSTALLER pacemaker implantation. Elective replacement indicators for removal and replacement of the generator battery depletion. Pacemaker dependency. HISTORY AND INDICATIONS: The patient is an 89-year-old female with a history of nonischemic cardiomyopathy, chronic systolic heart failure who had a PUMP INSTALLER multi-lead pacemaker implantation initially in 2003, subsequently 2012. Now recent analysis showed patient is pacemaker dependent, showed elective replacement indicator battery depletion. Hence, multi-lead pacemaker generator removal and replacement was recommended under local anesthesia, conscious sedation. __. DESCRIPTION OF PROCEDURE: Patient brought to cardiac catheterization laboratory. Conscious sedation was given with 1 mg of Versed, 50 mcg of fentanyl. Left subclavian area was prepared in sterile fashion with 1% Xylocaine local anesthesia given. Linear incision was made over the generator. Pocket was opened. Capsule was resected. Generator was explanted. The thresholds were found to be excellent. The new Medtronic multi-lead pacemaker generator by [employer] PUMP INSTALLER pacemaker generator was attached to the leads. Quick connection was done. Thresholds were found to be excellent. The generator was positioned in the pocket. Antibiotic pocket was also placed and positioned in the pocket and secured to the pectoral fascia with 2-0 silk sutures. Subcutaneous tissue was closed using continuous 2-0 chromic sutures. Skin was closed using Dermabond. Patient tolerated the operation very well, no complications. Patient was given 500 mg vancomycin pre-op. SUMMARY: The pacemaker thresholds are as follows: Atrial threshold is 1.25 volts, ventricle 0.75 in the RV, 1.125 in the LV. The P waves are 1 millivolts. R waves not sensed. The lead impedance: atrium 342, ventricle RV 494, LV lead 323. The leads that are implanted initially are in 2003. LV lead was implanted in 2003. The generator that is implanted today is a Medtronic MRA safe PUMP INSTALLER pacemaker. Serial number is [id number]. The generator that is removed is implanted in 2019. The serial number is [id number]. The left ventricle lead is implanted in 2003, 4194. Serial number is [id number]. The RV lead is implanted again in 2003. The 5876, serial number is [id number]. The atrial lead is implanted in 2003, 407, serial number is [id number]. Pacemaker is programmed DDD mode. DT: 13:11:08 TT: 13:46:00 Ref: [id number] - TID: [id number]
== END 2025-01-01 13:10 | disposition home or self-care (01) ==
PROVIDERS: PCP Family Medicine; Referring Provider Internal Medicine Cardiovascular Disease; Visit Provider Internal Medicine Cardiovascular Disease
PROC: (CPT 33229; principal; 2025-01-01 11:30)
DX: Z45.010 Encounter for checking and testing of cardiac pacemaker pulse generator [battery] (principal); I50.22 Chronic systolic (congestive) heart failure; I42.8 Other cardiomyopathies; I34.0 Nonrheumatic mitral (valve) insufficiency; I11.0 Hypertensive heart disease with heart failure; Z79.899 Other long term (current) drug therapy; Z79.82 Long term (current) use of aspirin
CPT/HCPCS: 33229; 36415; 80048; 85025; 85610; 85730; 93005; 99152; 99153; A4649; C1781; J0461; J2250; J2312; J2371; J3010; J3490